=== PATIENT | female | born 1970 | race Caucasian/White ===

== ENCOUNTER 2020-07-06 10:52 | Day surgery (SDC) | payer BC ==
--- OUTSIDE RECORDS SUMMARY | 2020-07-06 10:55 | XMS REPORT | Continuity of Care Document ---
:1970 Author Organization [facility] t Address 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 [facility] - sterolemia sterolemia [facility] Panic Panic Problem Active [facility] [episodic [episodic Dominic yousuf paroxysmal paroxysmal l anxiety] anxiety] Outpat i ent Clinics Acute Acute Problem Active [facility] stress stress [facility] - reaction reaction [facility] Primary Primary Problem Active [facility] osteoarthr osteoarthr [facility] - itis of itis of Mem[facility] left hip left hip l [facility] ent Clinics Family Family Problem Active [facility] history of history of [facility] - skin skin [facility] cancer cancer l [facility] ent [facility] Elevated Elevated Problem [facility] alanine alanine [facility] - aminotrans aminotrans Me moria ferase ferase l (ALT) (ALT) [facility] Clin[facility] Skin Skin Problem Active [facility] lesions lesions [facility] Pain in Pain in Diagnosis [facility] knee [facility] Vitamin D Vitamin D Diagnosis Active [facility] deficiency deficiency [facility] Pain in Pain in Diagnosis [facility] Pain in Pain in Diagnosis [facility] Pain in Pain in Diagnosis [facility] Allergies, Adverse Reactions, Alerts This patient has no known allergies or adverse reactions. Medications Ordered Filled Start Stop Current Ordering Indication Dosage Frequency Signature Comments Components Source Medication Medication Date Date Medication? Clinician (SIG) Name Name Lo/Ovral Lo/Ovral Yes Kaley [address] [facility] [address] [facility] Xanax Xanax Yes Kaley [address] [facility] as needed [facility] Immunizations Ordered Filled Immunization Date Status Comments Sourc e Immunization Name Name TDAP > 7 TDAP > 7 2018-05-[address] [facility] - Years-Adacel Years-Adacel 00:00:00 [facility] Procedures This patient has no known procedures. Encounters Start End Encounter Admission Attending Care Care Encounter Source Date/Time Date/Time Type Type Clinicians Facility Department ID 2019-10-17 2019-10-17 Outpatient Jose Garciat [id number] [facility] 08:[facility]00 08:45[facility]00 [facility] 2019-09-02 2019-09-02 [facility] [id number] [facility] 09:00:00 09:00:00 [facility] 2019-04-14 2019-04-14 [facility] [id number] [facility] 14:30:00 14:30:00 [facility] ent Clinics 2018-05-31 2018-05-31 [facility] [id number] [facility] 09:30[facility]00 09:30:00 [facility] 2018-04-16 2018-04-16 [facility] [id number] [facility] 09:[facility]:00 09:00:00 [facility] ent Clinics Results This patient has no known results.
[2020-07-06] MEDS ORDERED: Ringers Lactate 1,000 ML IV ONE (11:21)
[2020-07-06] MEDS ORDERED: KETOROLAC 30 MG/ML INJ ONE (11:25)
[2020-07-06] MEDS ORDERED: propofoL 200 MG/20 ML VIAL IV ONE ×3 (11:25→13:00)
[2020-07-06] MEDS ORDERED: ONDANSETRON 4 MG/2 ML VIAL ONE (11:25)
[2020-07-06] MEDS ORDERED: LIDOCAINE 1% MPF 5 ML VIAL ONE (11:25)
[2020-07-06] MEDS ORDERED: MIDAZOLAM HCL 2 MG/2 ML INJ ONE (11:25)
[2020-07-06] MEDS ORDERED: FENTANYL CITR 100 MCG/2 ML ONE (11:25)
[2020-07-06] MEDS ORDERED: LIDOCAINE 1% W/EPI 1:100,000 MDV 20 ML VIAL ONE (12:18)
[2020-07-06] MEDS ORDERED: CEFAZOLIN SODIUM 1 GM/VIAL ONE (13:33)
[2020-07-06] MEDS ORDERED: HYDROCODONE/APAP 5/325 MG TAB PO ONE (14:13)
[2020-07-06 14:19] VITALS: BP 112/58; TEMP 97.8; O2SAT 100
[2020-07-06] MEDS ORDERED: HYDROCODONE/APAP 5/325 MG TAB ONE (14:25)
--- NOTE | 2020-07-06 21:40 | OP ---
Date of Procedure: 07/06/2020 Surgeon: Britni Valera MD Preoperative Diagnoses: Postmenopausal bleeding, endometrial thickening. Postoperative Diagnoses: Postmenopausal bleeding, endometrial thickening, and endometrial polyp. Procedures Performed: Diagnostic hysteroscopy, unable to complete entry into the uterus, dilatation and curettage, and polypectomy. Specimens: Endometrial polyp and curettings. Complications: None. Drains: None. Estimated Blood Loss: Minimal. Condition: Stable. Findings: Internal os was very stenotic. It was difficult to get the SlimLine hysteroscope through the canal here. After dilating the cervical canal, there were technical difficulties with the scopes for us to be able to visualize the uterine cavity. However, endometrial curettage was performed in the usual fashion and polyp was removed and curettings performed. Indications: The patient is a 50-year-old with postmenopausal bleeding, history of OC use until 9 mo nths ago. FSH elevated to be consistent with menopause. Transvaginal ultrasound was performed and l ining was thickened and heterogeneous, suspicious for a polyp. This patient did not feel comfortable doing this procedure in the office due to concerns of pain and anxiety. We consented her to do this procedure in the hospital under sedation. Description Of Procedure: After informed consent was verified, the patient was taken back to the OR. She was placed in a supine fashion on the operating table. After MAC was given, she was placed in a dorsal lithotomy position. Vulva, vagina, and perineum were prepped and draped in a sterile fashio n. Speculum placed to expose the cervix. Anterior lip injected with 1% lidocaine mixed with 1:100,0 00 epinephrine, 10 cc, and then anterior lip grasped with an Allis clamp at 4 and 8 o'clock positions of the cervicovaginal junction. Injection of 6 cc each was given for a paracervical block. Another prep with Betadine was done. The SlimLine diagnostic hysteroscope was used to enter the cerv ical canal at the level of the internal os. It was very difficult to get through the os with the tip of the scope itself. The quality of the image was poor. There was no available alternative lens, s o attempted to open the MyoSure scope and this did not work due to technical reasons as well. The cervix was dilated with Dwyer dilators to 16-Tajik. Then, with the help of a #1 endometrial cur ette as well as a serrated curette, was able to perform D and C. The sounding length was 7.5 cm, fro m the internal os to the fundus was not very long about 4.5 cm or maybe 4 cm. So, once the curetting s were performed, a polyp was removed from the posterior curettings. This was all handed out for per manent pathology. All the instruments were removed. Instrument, needle, and sponge counts were done and were correct at the end of the case. The patient had to be converted to general anesthetic as s he was unable to tolerate the procedure right at the very beginning after the paracervical block and attempting to enter through the internal cervical os. She was very uncomfortable even with a deep MA C and was moving around and so converted over to LMA with a mask and then I was able to complete the rest of the procedure. She was recovered from general anesthesia well and taken to the PACU in stabl e condition. Her specimens were sent for permanent pathology. Instrument, needle, and sponge counts were correct at the end of the case. Estimated blood loss was minimal. Discussed the findings with her and also with the patient as she was a bit further awake. Gayla liang has a followup appointment with me in 1 week for review of pathology, also have another handout for her recovery. Ibuprofen and NSAIDs as needed. After she ambulates and tolerates diet and has adequate pain control, she will be discharged home today. TANIA/LUIS A Voice ID: [id number] Report ID: [id number]
== END 2020-07-06 14:58 | disposition home or self-care (01) ==
LOC: OR 10:52
PROVIDERS: ATTEND Obstetrics & Gynecology
PROC: 0UDB8ZX Extraction of Endometrium, Via Natural or Artificial Opening Endoscopic, Diagnostic (ICD-10-PCS; 2020-07-06)
PROC: 0UB98ZX Excision of Uterus, Via Natural or Artificial Opening Endoscopic, Diagnostic (ICD-10-PCS; principal; 2020-07-06 13:30)
DX: N85.00 Endometrial hyperplasia, unspecified (principal); N95.1 Menopausal and female climacteric states; N95.2 Postmenopausal atrophic vaginitis; F32.0 Major depressive disorder, single episode, mild; Z20.828 Contact with and (suspected) exposure to other viral communicable diseases
CPT/HCPCS: 88305; 58558; U0002; J2704 ×3; J2250; J3010; J7120; J2405; J0690